=== PATIENT | male | born 2000 | race Asian ===

== ENCOUNTER 2024-06-08 13:34 | Day surgery (SDC) | payer OTHER, SELFPAY ==
[2024-06-08 13:47] VITALS: BP 121/88; PULSE 82; RESP 14; TEMP 36.1; O2SAT 97; BMI 25.3
--- NOTE | 2024-06-08 15:45 | CRLHL7_ITS ---
For Patients: As a result of the Century Cures Act, medical imaging exams and procedure reports are released immediately into your electronic medical record. You may view this report before your referring provider. If you have questions, please contact your health care provider. INDICATION: Right rectal perirectal abscess COMPARISON: None. TECHNIQUE: CT of the abdomen and pelvis with intravenous contrast (86 milliliters Isovue 370.). FINDINGS: Lung bases: No pleural effusion. Liver: Smooth hepatic contour. Mild hypoattenuating change with the hepatic fissure likely reflect focal fatty deposition and/or perfusional differences. A subcentimeter hypoattenuating focus near the hepatic dome is too small to characterize, but statistically likely to represent a cyst. Gallbladder and biliary tree: Unremarkable CT appearance. Spleen: No splenomegaly. Pancreas: Normal. Adrenal glands: Normal. Kidneys and ureters: No hydroureteronephrosis. No suspicious renal lesions are identified. Bladder: Unremarkable CT appearance. Visualized reproductive organs: Unremarkable CT appearance. Gastrointestinal tract: Within the subcutaneous fat of the left gluteal cleft there is pronounced inflammatory change and a soft tissue attenuation 4.3 x 2.7 centimeter lesion with central hypoenhancement which extends to and is difficult to differentiate from the adjacent left posterolateral anus. No focal abnormally dilated loops of bowel. Normal appendix. Peritoneal cavity: No free fluid or free air. Lymph nodes: No enlarged abdominal or pelvic lymph nodes by CT size criteria. Vessels: No abdominal aortic aneurysm. Abdominal and pelvic wall: Normal. Bones: No acute osseous findings. Mild anterior vertebral body wedging at the thoracolumbar junction. Transitional lumbosacral anatomy. Small multilevel Schmorl`s nodes in the visualized spine. No evident erosive change associated with the sacroiliac joints. IMPRESSION: Within the subcutaneous fat of the left gluteal cleft there is pronounced inflammatory change and a soft tissue attenuation 4.3 centimeter lesion with central hypoenhancement which extends to and is difficult to differentiate from the adjacent left posterolateral anus. This likely represents a perianal abscess/fistula. This lesion could be more fully characterized with a contrast-enhanced MRI of the pelvis. Please note that all CT scans at this facility use dose modulation, iterative reconstruction, and/or weight-based dosing when appropriate to reduce radiation dose to as low as reasonably achievable. Dictated by Shant Andrews MD @ 06/08/2024 5:07:26 PM (Electronically Signed)
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
[2024-06-08] MEDS: 0.9 % SODIUM CHLORIDE 1000 ml 1,000 ML IV (16:16)
[2024-06-08] MEDS: HYDROmorphone 0.5 mg/0.5 ml inj IVP (16:20)
[2024-06-08] MEDS: KETOROLAC 30 MG/ML inj IVP (16:25)
[2024-06-08 16:26] LABS: Basophils Percent Auto 0.1 % (0.0-3.0); Eosinophils Percent Auto 0.1 % (0.0-7.0); Hematocrit 46.6 % (37.0-53.0); Hemoglobin* 15.6 gm/dL (13.5-17.5); Immature Granulocytes Pct Auto 0.2 %; Lymphocytes Percent Auto 12.8 % (20-44); Mean Corpuscular HGB Conc 34 gm/dL (32-36); Mean Corpuscular Hemoglobin 31 pg (26-34); Mean Corpuscular Volume 92 fL (80-100); Monocytes Percent Auto 7.9 % (0.0-11.0); Neutrophils Percent Auto 78.9 % (42.0-72.0); Platelet Count* 327 K/uL (140-440); RDW Coefficient of Variation % 11.7 % (11.5-15.5); Red Blood Count 5.09 m/uL (4.30-5.90); White Blood Count* 16.23 K/uL (4.50-11.00)
[2024-06-08 16:30] LABS: Slide Review Reflex No
[2024-06-08 16:33] LABS: Chloride* 100 mmol/L (96-114)
[2024-06-08 16:34] LABS: Potassium* 3.7 mmol/L (3.6-5.1); Sodium* 140 mmol/L (135-149)
[2024-06-08 16:36] LABS: Creatinine* 0.7 mg/dL (0.5-1.5); Est. Creatinine Clearance* 168.02; Estimated Glomerular Filt Rate 132 ml/min
[2024-06-08 16:37] LABS: Anion Gap 14 mEq/L (7-15); Blood Urea Nitrogen* 5 mg/dL (5-24); Calcium* 9.4 mg/dL (8.4-10.6); Carbon Dioxide* 26 mmol/L (20-32); Glucose* 101 mg/dL (60-115)
[2024-06-08 16:40] LABS: C Reactive Protein* 7.5 mg/dL (0.5-1.0)
[2024-06-08] MEDS: PIPERACILLIN/TAZOBACTAM 3.375 GM in 0.9 % SODIUM CHLORIDE Mini-bag 100 ML IVPB (16:50)
[2024-06-08 16:52] LABS: Procalcitonin* 0.06 ng/mL (<0.50)
[2024-06-08 17:19] VITALS: PULSE 89; O2SAT 97
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
[2024-06-08 21:50] VITALS: BP 135/87; PULSE 89; RESP 16; TEMP 36.7; O2SAT 97; BMI 23.3
[2024-06-08] MEDS: SODIUM CHLORIDE 0.9 % (FLUSH) 10 ML SYRINGE 5 ML IVF (22:27)
[2024-06-08] MEDS: 0.9 % SODIUM CHLORIDE 250 ml IV (22:28)
[2024-06-08] MEDS: AMPICILLIN/SULBACTAM 1.5 GM in 0.9 % SODIUM CHLORIDE Mini-bag 100 ML IVPB (22:28)
[2024-06-08 23:23] VITALS: BP 110/66; PULSE 76; RESP 16; TEMP 36.2; O2SAT 96
[2024-06-09] VITALS (23 sets, daily range): BP systolic 110–130; BP diastolic 67–83; PULSE 67–89; RESP 16–18; TEMP 36.3–36.9; O2SAT 96–100
[2024-06-09] MEDS: SODIUM CHLORIDE 0.9 % (FLUSH) 10 ML SYRINGE 5 ML IVF (04:23)
[2024-06-09] MEDS: AMPICILLIN/SULBACTAM 1.5 GM in 0.9 % SODIUM CHLORIDE Mini-bag 100 ML IVPB (04:24)
--- NOTE | 2024-06-09 05:19 | PC.NURSE ---
Patient arrived on the unit at 192. Ambulatory. Denies pain. Pleasant and cooperative. Denies N/V. Afebrile. NPO @0000 for surgery this morning. Rested on and off during noc.
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
--- NOTE | 2024-06-09 10:45 | W.ANESCHARGE ---
Anesthesia Charges Start Date/Time Anesthesia Start Date: 06/09/24 Anesthesia Start Time: 10:19 Stop Date/Time Anesthesia Stop Date: 06/09/24 Anesthesia Stop Time: 11:08
[2024-06-09] MEDS: BUPIVACAINE 0.25% 30 ML INJECTION (10:50)
[2024-06-09] MEDS: BUPIVACAINE LIPOSOME 133 MG/10 ML INJ INFILTRATI (10:50)
[2024-06-09] MEDS: LACTATED RINGERS 1000 ML 1,000 ML 100 ML IV (10:55)
--- NOTE | 2024-06-09 11:07 | PM.GSPRC ---
Operative Note Date of procedure: 06/09/24 Pre-op diagnosis: Perianal abscess Post-op diagnosis: Same Type of Procedure: Exam under anesthesia, incision and drainage perianal abscess Indications: Patient is a 24-year-old male who presented to the emergency department with clinical history workup consistent with perianal abscess. Risks and benefits of operative intervention were discussed at length with the patient. Risks included but was not limited to: Bleeding, worsening infection, risk of damage to surrounding structures, possible need for additional procedures, risk of urinary retention, the small but real risk of changes in continence of stool with any anal procedure and postoperative complications such as pneumonia, pulmonary emboli or MO. All questions and concerns were addressed with the patient agreeing to proceed. Procedure Description: The patient was brought to the Operating Room, a spinal anesthetic was given by Anesthesia. The patient was then transferred to the Operating Room table, placed in the prone jackknife position with appropriate bumps and padding. Care was taken to ensure the genitalia and breast were properly positioned on the hip and chest rolls, respectively. The shoulders and arms were positioned with care to protect the brachial plexus. The buttocks were taped laterally. A sterile prep and drape was done in the usual fashion. A formal timeout for patient safety was performed in accordance with hospital protocol, thereby correctly matching this patient with their diagnosis and intended procedure. External examination, digital rectal examination, and anoscopic examination were all done and revealed a 5 mm opening just outside of the anal verge on the left buttock with purulent drainage. There was some surrounding erythema and induration. No purulent drainage present within the anal canal and no fistula identified. There was fullness appreciated left lateral. A 1 cm scar was identified approximately 4 cm away from the anal verge anterior midline. This was well-healed and away from the current infection. No other abnormal masses or lesions identified. The 5 mm opening was extended with an 11 blade scalpel. A moderate amount of purulent drainage was expressed. Using blunt dissection with my finger the underlying abscess cavity was debrided of all inflammatory tissue. There appeared to be no undrained collections. The wound was irrigated with a mixture of hydrogen peroxide and saline, with again no identification of a perianal fistula. Hemostasis was assured with pressure and electrocautery. A pudendal block was performed bilaterally and the area anesthetized with a mixture of 0.25% Marcaine and Exparel. The wound was packed with 1 in iodoform and outer dressings applied. The patient tolerated procedure well. There were no apparent complications. Instrument, sponge, and needle counts were correct at the end of the case. Findings: Left buttock perianal abscess. Anesthesia: local and spinal Surgeon: Raina Juarez MD Estimated blood loss (mL): 5 Condition: stable Disposition: PACU
--- NOTE | 2024-06-09 11:14 | W.ANESCHARGE ---
Anesthesia Charges Start Date/Time Anesthesia Start Date: 06/09/24 Anesthesia Start Time: 10:19 Stop Date/Time Anesthesia Stop Date: 06/09/24 Anesthesia Stop Time: 11:08
[2024-06-09] MEDS: HYDROCODONE-ACETAMIN 5-325 MG 1 TAB PO ×2 (13:06→17:08)
--- NOTE | 2024-06-09 15:22 | PC.NURSE ---
Nursing Care Hours: 11-1500 Pt arrived from PACU at 1330 alert and oriented. Pain rated 3/10. Small amount of bloody discharge noted on dressing. VSS. Mild nausea relieved by cool wash cloth and rest. Tolerated jello and water. IV patent.
[2024-06-09] MEDS: AMOXICILLIN/CLAVULANATE 875 mg/125 mg TABLET PO (18:11)
[2024-06-10 03:00] VITALS: BP 111/63; PULSE 71; RESP 16; TEMP 36.6; O2SAT 98
[2024-06-10] MEDS: HYDROCODONE-ACETAMIN 5-325 MG 1 TAB PO ×2 (03:14→08:14)
[2024-06-10 06:39] LABS: Basophils Absolute Auto 0.02 K/uL (0.00-0.30); Basophils Percent Auto 0.2 % (0.0-3.0); Eosinophils Absolute Auto 0.04 K/uL (0.00-0.50); Eosinophils Percent Auto 0.4 % (0.0-7.0); Hematocrit 43.3 % (37.0-53.0); Hemoglobin* 14.3 gm/dL (13.5-17.5); Immature Granulocytes Abs Auto 0.01 K/uL (0.00-0.30); Immature Granulocytes Pct Auto 0.1 %; Lymphocytes Percent Auto 21.8 % (20-44); Mean Corpuscular HGB Conc 33 gm/dL (32-36); Mean Corpuscular Hemoglobin 30 pg (26-34); Mean Corpuscular Volume 91 fL (80-100); Monocytes Percent Auto 8.5 % (0.0-11.0); Neutrophils Absolute Auto 6.34 K/uL (1.7-7.0); Platelet Count* 363 K/uL (140-440); RDW Coefficient of Variation % 11.6 % (11.5-15.5); Red Blood Count 4.77 m/uL (4.30-5.90); White Blood Count* 9.19 K/uL (4.50-11.00)
[2024-06-10 06:47] LABS: Slide Review Reflex No
--- NOTE | 2024-06-10 06:49 | PC.NURSE ---
[id number] Pt slept entire night, requested pain med x1 during shift for increased pain with movement, did stated that prn pain medication gave relief.
[2024-06-10 08:00] VITALS: BP 131/81; PULSE 81; RESP 16; TEMP 36.6; O2SAT 100
[2024-06-10] MEDS: AMOXICILLIN/CLAVULANATE 875 mg/125 mg TABLET PO (08:05)
--- NOTE | 2024-06-10 14:52 | PM.DS1 ---
DS: Providers Provider Date Seen: 06/10/24 Primary care physician: Not a Local Provider Attending Physician on discharge: Raina Juarez MD DS: Summary Hospital Course Hospital Course: Patient presented to the ED with evidence of perianal abscess on imaging. He was taken to the OR on 06/09/24 for an exam under anesthesia, incision and drainage. Post operatively he stayed for pain control. He was initially on IV antibiotics but transitioned to oral at the time of discharge to complete a course. Packing was placed within the abscess cavity, but then removed on POD1. During his hospital stay he remained afebrile and had resolution of his leukocytosis. His pain was controlled with oral pain medications, he was tolerating a regular diet and ambulating without difficulty. Plan for patient to discharge with follow up at [facility] clinic surgery. Time Spent with Patient Time attestation: Total time spent providing and/or coordinating discharge services: Exam Narrative: Exam Narrative: Gen: alert and oriented, NAD Resp: maintained on RA CV: well perfused : left perianal abscess with saturated serosanguinous drainage. Packing removed. No significant surrounding cellulitis and no undrained fluid pockets palpated. Const: Vital Signs, click to edit/add: Vital Signs - 24 hr 06/09/24 15:00 06/09/24 15:00 06/09/24 19:00 Temperature 97.7 F 97.9 F Pulse Rate [Pulse Oximeter] 74 Respiratory Rate 18 18 16 Blood Pressure [Ri ght Arm] 120/75 118/71 Pulse Oximetry 98 97 Oxygen Delivery Me thod Room Air Room Air 06/09/24 23:00 06/10/24 03:00 06/10/24 08:00 Temperature 97.5 F L 97.8 F 97.8 F Pulse Rate [Pulse Oximeter] 67 71 81 Respiratory Rate 16 16 16 Blood Pressure [Ri ght Arm] 114/71 111/63 131/81 Pulse Oximetry 100 98 100 Oxygen Delivery Me thod Room Air Room Air Room Air DS: Data Data Completed and Pending Labs on day of discharge: Labs from last 24 hours 06/10/24 05:59 WBC 9.19 RBC 4.77 Hgb 14.3 Hct 43.3 MCV 91 MCH 30 MCHC 33 RDW Coeff of Edita 11.6 Plt Count 363 Neut % (Auto) 69.0 Lymph % (Auto) 21.8 [place] % (Auto) 8.5 Eos % (Auto) 0.4 Baso % (Auto) 0.2 Neut # (Auto) 6.34 Lymph # (Auto) 2.00 [place] # (Auto) 0.80 Eos # (Auto) 0.04 Baso # (Auto) 0.02 Abs Immat Gran (auto) 0.01 Imm/Tot Granulo (auto) 0.1 Discharge Plan Discharge Disposition: Home w/ Parent or Adult Discharging Surgeon: Raina Juarez Follow-Up Appointment: 06/11/24 @ 1:00pm with Dr. Juarez at the [facility] Prescriptions: New hydrocodone-acetaminophen 5-325 mg tablet 1 tab PO Q6H PRN (Reason: pain) Qty: 15 0RF amoxicillin-pot clavulanate 875-125 mg tablet 1 tab PO BID Qty: 10 0RF senna 8.6 mg capsule 8.6 mg PO BID PRN (Reason: constipation) Qty: 90 0RF Activity Level: No Restrictions and Activity as Tolerated Discharge Diet: Regular Patient Instructions: Hydrocodone/Acetaminophen (By mouth), Amoxicillin/Clavulanate Potassium (By mouth), Senna (By mouth) (Sen, Senna-lax), Rectal Abscess (DC) Additional Instructions: You were prescribed a narcotic pain medication. In addition you may supplement with Tylenol and/or ibuprofen. Be sure to not exceed greater than 4 g of Tylenol in a 24 hour period. While on narcotic pain medicine please take stool softeners. A prescription of stool softeners has been sent to the pharmacy. Stop if having greater than 2 stools per day. You have packing in your wound. This is a single piece of dressing. Please shower tomorrow and soak the area. Removed the entire dressing tomorrow in the shower. Continue to wear an outer pad to catch any persistent drainage. If you have access to a bath tub you can soak in a bathtub for comfort. Do not soak in a swimming pool, hot tub or [place] until the area is completely healed. Follow-up with Dr. Juarez on 06/11/2024 @ 1:00pm at the [facility]. Please call if you are experiencing severe pain, nausea, vomiting, difficulty urinating or fever after surgery. Forms: Work/School Release, [facility] Info Instructions Follow-up: Raina Juarez MD [Staff Physician] - 06/11/24 1:00 pm (Follow up with Dr. Juarez at the [facility]) Discharge Orders: Discharge Order (Routine); Ordered 06/10/24 Ordered By: Raina Juarez
== END 2024-06-10 11:39 | disposition home or self-care (01) ==
LOC: ED 18:27 → OR 19:17 → MEDSURG 06-09 07:01
PROVIDERS: Emergency Provider Family Medicine; Visit Provider Surgery
PROC: (CPT 46040; principal; 2024-06-09 11:15)
DX: K61.2 Anorectal abscess (principal)
CPT/HCPCS: 46050; 00902; 36415; 74177; 80048; 84145; 85025; 86140; 99284; 99285; A9270; C9290; G0378; J0295; J0665; J1100; J1170; J1885; J2250; J2405; J2543; J2704; J3490; J7030; J7050; J7120; Q9967